=== PATIENT | female | born 1990 | race Caucasian/White ===

== ENCOUNTER 2016-11-26 16:32 | Emergency (ER) | payer SELFPAY ==
[2016-11-26 18:26] LABS: BASOPHIL % 0.1 % (0-2); PLATELET COUNT 267 x10^3mcL (130-400); RED CELL DISTRIBUTION WIDTH 13.9 % (11.5-14.5)
[2016-11-26 18:27] LABS: CALCIUM 9.6 mg/dL (8.5-10.1); CARBON DIOXIDE 20.5 mmol/L (21-32); CHLORIDE SERUM 102 mmol/L (98-107); CREATININE SERUM 0.7 mg/dL (0.6-1.0); GFR1 > 60 mL/min; GLUCOSE SERUM 99 mg/dL (74-106); POTASSIUM SERUM 3.5 mmol/L (3.5-5.1); SODIUM SERUM 137 mmol/L (136-145)
[2016-11-26 18:30] LABS: ALBUMIN 4.1 g/dL (3.4-5.0); ALKALINE PHOSPHATASE 50 U/L (46-116); ALT/SGPT 44 U/L (14-59); AMYLASE 82 U/L (25-115); AST/SGOT 18 U/L (15-37); BILIRUBIN TOTAL 1.5 mg/dL (0.20-1.00); LIPASE 121 IU/L (73-393); TOTAL PROTEIN, SERUM 7.6 g/dL (6.4-8.2)
[2016-11-26 18:49] LABS: microscopic required? YES; urine erythrocyte NEGATIVE (NEGATIVE)
[2016-11-26 20:21] VITALS: BP 110/68
== END 2016-11-26 20:18 | disposition home or self-care (01) ==
LOC: ED 16:32
PROVIDERS: Emergency Medicine
DX: O23.41 Unspecified infection of urinary tract in pregnancy, first trimester (principal); Z3A.09 9 weeks gestation of pregnancy; O21.0 Mild hyperemesis gravidarum
CPT/HCPCS: J0696; J3411; J3475; J3490; J7030